=== PATIENT | male | born 1960 | race Hispanic/Latino ===

== ENCOUNTER 2022-02-27 16:14 | Inpatient (IN) | payer OTHER ==
[~2022-02-27 16:14] MED LIST: Iopamidol-370 76% 500 ML 1 ML ONE
[2022-02-27] MEDS ORDERED: Ondansetron PF 4 MG/2 ML Vial ONE (16:59)
[2022-02-27] MEDS ORDERED: Morphine 4 MG/ML VIAL ONE (16:59)
[2022-02-27 17:05] LABS: #Basophils 0.1 thou/uL (0.0-0.2); #Eosinphils 1.1 thou/uL (0.0-0.7); #Monocytes 1.1 thou/uL (0.11-0.59); #Neutrophils 4.1 thou/uL (1.40-6.50); %Basophils 1.3 % (0.0-1.0); %Eosinophils 13.3 % (0.0-10.0); %Lymphocytes 23.6 % (21.0-51.0); %Monocytes 12.7 % (0.0-10.0); Hemoglobin 15.1 g/dL (14.0-18.0); Mean Corpuscular HGB CONC 33.8 g/dL (32.0-36.0); Mean Corpuscular Hemoglobin 32.9 pg (27.0-31.0); Mean Corpuscular Volume 97.3 fL (78.0-98.0); Platelet Count 329 thou/uL (130-400); RBC Distribution Width 11.8 % (11.5-14.5); Red Blood Cell (RBC) Count 4.61 mill/uL (4.70-6.10); White Blood Cell (WBC) Count 8.5 thou/uL (4.8-10.8)
[2022-02-27 17:27] LABS: ALT (SGPT) 30 U/L (8-55); AST (SGOT) 21 U/L (5-34); Alkaline Phosphatase 86 U/L (40-110); Anion Gap 13 mmol/L (10-20); BUN (Urea Nitrogen) 15 mg/dL (8.4-25.7); Bilirubin, Total 0.5 mg/dL (0.2-1.2); CK (CPK) 242 U/L (30-200); Calc. Creatinine Clearance 0 mL/min (70-130); Calcium 8.8 mg/dL (7.8-10.44); Carbon Dioxide 25 mmol/L (23-31); Chloride 104 mmol/L (98-107); Globulin 3.1 g/dL (2.4-3.5); Glucose 141 mg/dL (80-115); Lipase 11 U/L (8-78); Potassium 3.8 mmol/L (3.5-5.1); Protein, Total 7.1 g/dL (5.8-8.1); Sodium 138 mmol/L (136-145)
[2022-02-27] MEDS ORDERED: Fentanyl 100 MCG/2 ML VIAL ONE (17:59)
[2022-02-27 18:18] LABS: INR-International Normal Ratio 0.9
[2022-02-27 18:19] LABS: PTT 27.4 sec (22.9-36.1)
[2022-02-27] MEDS ORDERED: Ondansetron ODT 4 MG TAB PO PRN (18:55)
[2022-02-27] MEDS ORDERED: HYDROcodone/Acetaminophen 5/325 mg Tablet PO PRN (18:55)
[2022-02-27] MEDS ORDERED: Senokot S 8.6-50 MG TAB PO PRN (18:55)
[2022-02-27] MEDS ORDERED: Guaifenesin DM 100-10/5 ML UDCUP PO SCH ×2 (19:00→23:59)
[2022-02-27] MEDS: Sodium Chloride 0.9% 1,000 ML IV SCH (22:08)
[2022-02-27] MEDS: Benzonatate 100 MG CAP PO SCH (22:13)
[2022-02-27 22:18] VITALS: BMI 34.9
[2022-02-28] MEDS: Guaifenesin DM 100-10/5 ML UDCUP PO SCH ×6 (02:15→21:05)
[2022-02-28 05:20] LABS: Anion Gap 11 mmol/L (10-20); BUN (Urea Nitrogen) 16 mg/dL (8.4-25.7); Calc. Creatinine Clearance 144 mL/min (70-130); Calcium 8.3 mg/dL (7.8-10.44); Carbon Dioxide 24 mmol/L (23-31); Chloride 105 mmol/L (98-107); Glucose 160 mg/dL (80-115); Sodium 136 mmol/L (136-145)
[2022-02-28 06:49] LABS: #Basophils 0.1 thou/uL (0.0-0.2); #Eosinphils 0.1 thou/uL (0.0-0.7); #Lymphocytes 1.1 thou/uL (1.20-3.40); #Monocytes 0.9 thou/uL (0.11-0.59); #Neutrophils 8.4 thou/uL (1.40-6.50); %Basophils 0.5 % (0.0-1.0); %Eosinophils 0.9 % (0.0-10.0); %Lymphocytes 10.4 % (21.0-51.0); %Monocytes 8.8 % (0.0-10.0); %Neutrophils 79.4 % (42.0-75.0); Hemoglobin 12.4 g/dL (14.0-18.0); Mean Corpuscular HGB CONC 33.4 g/dL (32.0-36.0); Mean Corpuscular Hemoglobin 32.8 pg (27.0-31.0); Mean Corpuscular Volume 98.3 fL (78.0-98.0); Mean Platelet Volume 7.3 fL (7.4-10.4); Platelet Count 298 thou/uL (130-400); RBC Distribution Width 11.7 % (11.5-14.5); Red Blood Cell (RBC) Count 3.78 mill/uL (4.70-6.10); White Blood Cell (WBC) Count 10.6 thou/uL (4.8-10.8)
[2022-02-28] MEDS: HYDROcodone/Acetaminophen 10/325 mg Tablet PO PRN ×3 (07:06→21:04)
[2022-02-28] MEDS: Mometasone 200 MCG/Formoterol 5 MCG 120 PUFF INHALER INH SCH ×2 (07:10→20:02)
[2022-02-28] MEDS: Benzonatate 100 MG CAP PO SCH ×3 (08:16→21:05)
[2022-02-28] MEDS: Sodium Chloride 0.9% 1,000 ML IV SCH ×2 (10:35→21:05)
[2022-02-28] MEDS: methylPREDNISolone Sod Succ 40 MG VIAL IVP SCH ×2 (11:23→17:38)
[2022-02-28 12:08] LABS: SARS-CoV-2 PCR by NAA Not Detected (NotDetected)
[2022-02-28 16:38] LABS: Hemoglobin 11.9 g/dL (14.0-18.0)
[2022-03-01] MEDS: methylPREDNISolone Sod Succ 40 MG VIAL IVP SCH ×4 (00:30→17:22)
[2022-03-01] MEDS: Guaifenesin DM 100-10/5 ML UDCUP PO SCH ×6 (01:02→20:28)
[2022-03-01 06:08] LABS: #Eosinphils 0.1 thou/uL (0.0-0.7); #Lymphocytes 0.8 thou/uL (1.20-3.40); #Monocytes 0.4 thou/uL (0.11-0.59); #Neutrophils 14.6 thou/uL (1.40-6.50); %Basophils 0.2 % (0.0-1.0); %Eosinophils 0.3 % (0.0-10.0); %Monocytes 2.7 % (0.0-10.0); %Neutrophils 91.8 % (42.0-75.0); Hemoglobin 11.5 g/dL (14.0-18.0); Mean Corpuscular HGB CONC 34.5 g/dL (32.0-36.0); Mean Corpuscular Hemoglobin 33.6 pg (27.0-31.0); Mean Corpuscular Volume 97.2 fL (78.0-98.0); Mean Platelet Volume 6.9 fL (7.4-10.4); Platelet Count 321 thou/uL (130-400); RBC Distribution Width 11.6 % (11.5-14.5); Red Blood Cell (RBC) Count 3.41 mill/uL (4.70-6.10); White Blood Cell (WBC) Count 15.9 thou/uL (4.8-10.8)
[2022-03-01 06:29] LABS: Anion Gap 10 mmol/L (10-20); BUN (Urea Nitrogen) 13 mg/dL (8.4-25.7); Calc. Creatinine Clearance 137 mL/min (70-130); Calcium 8.5 mg/dL (7.8-10.44); Carbon Dioxide 24 mmol/L (23-31); Chloride 104 mmol/L (98-107); Glucose 189 mg/dL (80-115); Potassium 3.9 mmol/L (3.5-5.1); Sodium 134 mmol/L (136-145)
[2022-03-01] MEDS: Mometasone 200 MCG/Formoterol 5 MCG 120 PUFF INHALER INH SCH ×2 (07:31→19:15)
[2022-03-01] MEDS: Benzonatate 100 MG CAP PO SCH ×3 (08:25→20:28)
[2022-03-01] MEDS: Acetaminophen 325 MG TAB PO PRN ×2 (08:33→20:35)
[2022-03-01] MEDS: Sodium Chloride 0.9% 1,000 ML IV SCH (11:18)
[2022-03-01] MEDS: HYDROcodone/Acetaminophen 10/325 mg Tablet PO PRN (11:37)
[2022-03-01 22:49] VITALS: TEMP 98.4
[2022-03-02] MEDS: Sodium Chloride 0.9% 1,000 ML IV SCH ×2 (00:59→14:29)
[2022-03-02] MEDS: methylPREDNISolone Sod Succ 40 MG VIAL IVP SCH ×4 (00:59→17:40)
[2022-03-02] MEDS: Guaifenesin DM 100-10/5 ML UDCUP PO SCH ×6 (01:47→20:24)
[2022-03-02 06:34] LABS: Hemoglobin 11.3 g/dL (14.0-18.0); Mean Corpuscular HGB CONC 33.6 g/dL (32.0-36.0); Mean Corpuscular Hemoglobin 32.9 pg (27.0-31.0); Mean Corpuscular Volume 97.9 fL (78.0-98.0); Platelet Count 355 thou/uL (130-400); RBC Distribution Width 11.8 % (11.5-14.5); Red Blood Cell (RBC) Count 3.43 mill/uL (4.70-6.10); White Blood Cell (WBC) Count 19.5 thou/uL (4.8-10.8)
[2022-03-02 06:56] LABS: Anion Gap 12 mmol/L (10-20); BUN (Urea Nitrogen) 15 mg/dL (8.4-25.7); Calc. Creatinine Clearance 143 mL/min (70-130); Calcium 8.7 mg/dL (7.8-10.44); Carbon Dioxide 24 mmol/L (23-31); Chloride 103 mmol/L (98-107); Glucose 184 mg/dL (80-115); Potassium 3.7 mmol/L (3.5-5.1); Sodium 135 mmol/L (136-145)
[2022-03-02] MEDS: Mometasone 200 MCG/Formoterol 5 MCG 120 PUFF INHALER INH SCH ×2 (07:21→19:27)
[2022-03-02] MEDS: Benzonatate 100 MG CAP PO SCH ×3 (08:49→20:24)
[2022-03-02 09:02] LABS: Band 17 % (5-11); Lymphocytes 3 % (21-51); MDiff Complete? YES; Monocytes 4 % (0-10); Neutrophil 75 % (42-75); Platelet Morphology Comment Appears Adequate; Polychromasia SLIGHT = 2-3 cells (100X) (0-2/hpf)
[2022-03-02 20:24] VITALS: BP 154/79
[2022-03-03] MEDS ORDERED: Azithromycin 250 MG TAB PO SCH (09:00)
== END 2022-03-02 20:55 | disposition home or self-care (01) | DRG 605 ==
LOC: ERS 16:14 → 2NO 18:30 → T4-A 02-28 13:37
PROVIDERS: ADMIT Internal Medicine; ATTEND Hospitalist
DX: S30.1XXA Contusion of abdominal wall, initial encounter (principal); Z20.822 Contact with and (suspected) exposure to COVID-19; J30.2 Other seasonal allergic rhinitis; J42 Unspecified chronic bronchitis; F41.9 Anxiety disorder, unspecified; D64.9 Anemia, unspecified; Z28.21 Immunization not carried out because of patient refusal; Z88.2 Allergy status to sulfonamides; Z98.890 Other specified postprocedural states; Z87.891 Personal history of nicotine dependence
CPT/HCPCS: 36415; 36416; 71045; 71250; 74177; 80048; 80053; 82550; 83605; 83690; 84484; 85025; 85610; 85730; 93005; 93306; 94640; 96374; 96375; J2270; J2405; J2920; J3010; J7050; J7620; Q9967; U0003; U0005

== ENCOUNTER 2025-07-13 18:48 | Emergency (ER) | payer OTHER ==
[2025-07-13] MEDS ORDERED: HYDROcodone/Acetaminophen 5/325 mg Tablet ONE (19:49)
[2025-07-13] MEDS ORDERED: Ondansetron PF 4 MG/2 ML Vial ONE ×2 (19:49→19:50)
== END 2025-07-13 21:32 | disposition home or self-care (01) ==
LOC: ERS 18:48
DX: S06.0X0A Concussion without loss of consciousness, initial encounter (principal); V80.010A Animal-rider injured by fall from or being thrown from horse in noncollision accident, initial encounter; Y93.52 Activity, horseback riding
CPT/HCPCS: 70450; 93005; 96374